=== PATIENT | male | born 1985 | race African-American/Black ===

== ENCOUNTER 2021-02-16 20:56 | Emergency (ER) | payer OTHER ==
[~2021-02-16] VITALS: Ht 154.9 cm; Wt 62.8 kg
[~2021-02-16 20:56] MED LIST: ALBUTEROL2.5 MG/3 M IH; NOHOMEMEDICATIONS; PREDNISONE 10 M10 MG PO; VENTOLIN HFA 1818 GM INH; ZPAK PO
[2021-02-16 22:01] LABS: ABSOLUTE BASOPHILS 0.1 thou/uL (0.0-0.2); ABSOLUTE EOSINOPHILS 0.5 thou/uL (0.0-0.7); ABSOLUTE LYMPHOCYTES 1.5 thou/uL (0.8-5.3); ABSOLUTE MONOCYTES 0.8 thou/uL (0.0-1.2); ABSOLUTE NEUTROPHILS 7.7 thou/uL (1.6-8.1); BASOPHILS 1.4 %; EOSINOPHILS 4.4 %; HEMATOCRIT 45.5 % (42.0-52.0); HEMOGLOBIN 15.7 gm/dL (14.0-18.0); LYMPHOCYTES 13.8 %; MCH 30.4 pg (26.0-34.0); MCHC 34.5 g/dL (28.0-37.0); MCV 87.9 fL (80.0-100.0); MONOCYTES 7.6 %; MPV 6.8 fl. (7.2-11.1); NUCLEATED RBCS 0 /100WBC; PLATELET COUNT* 242 thou/uL (150-400); POLYS 72.8 %; RBC 5.17 mil/uL (4.50-6.00); RDW-CV 13.4 % (10.5-14.5); WBC 10.5 thou/uL (4.0-11.0)
[2021-02-16 22:10] LABS: CALCIUM 8.3 mg/dL (8.5-10.1); CREATININE 1.1 mg/dL (0.6-1.3); POTASSIUM 3.9 mmol/L (3.5-5.1)
[2021-02-16 22:15] LABS: ALBUMIN 3.3 g/dL (3.4-5.0); TOTAL BILIRUBIN 0.7 mg/dL (<0.1-1.0); TOTAL PROTEIN 6.9 g/dL (6.4-8.2)
[2021-02-16 22:18] LABS: URINE BLOOD NEGATIVE (Negative); URINE CLARITY CLEAR; URINE COLOR YELLOW; URINE GLUCOSE-RANDOM NEGATIVE (Negative); URINE KETONES TRACE (Negative); URINE LEUKOCYTES-REFLEX NEGATIVE (Negative); URINE NITRITE-REFLEX NEGATIVE (Negative); URINE PROTEIN 1+ (Negative); URINE SPECIFIC GRAVITY >= 1.030 (1.005-1.030); URINE UROBILINOGEN 0.2 E.U./dl (0.2-1.0)
[2021-02-16 22:19] LABS: ACETAMINOPHEN < 2 ug/mL (10-30); ALCOHOL < 10 mg/dL (<10); SALICYLATE < 2.8 mg/dL (2.8-20.0)
[2021-02-16 22:22] LABS: URINE BILIRUBIN 1+ (Negative)
[2021-02-16 22:25] LABS: AMP/METHAMP POSITIVE (Negative); BARBITURATES Negative (Negative); BENZODIAZEPINES Negative (Negative); COCAINE Negative (Negative); ICTOTEST (BILI CONFIRMATORY) Negative (Negative); METHADONE Negative (Negative); OPIATES Negative (Negative); PCP Negative (Negative); THC POSITIVE (Negative)
[2021-02-17 04:02] LABS: CALCIUM 8.8 mg/dL (8.5-10.1); POTASSIUM 4.2 mmol/L (3.5-5.1)
--- NOTE | 2021-02-17 10:03 | EKG ---
[place] [address] ELECTROCARDIOGRAM REPORT Name: ALEXYMORGAN George Room: [facility]#: [id number] Admission: 02/16/21 Attend Phys: Discharge: Date of : 87 Date of Service: 02/16/212137 Report #: [id number] THIS REPORT FOR: //name// [facility] ED Test Date: 2021-02-16 Test Time: 21:38:49 Pat Name: MORGAN TRACEY Department: Room: Gender: Graduate Rn: RICH : 1985 Requested By: Jazzy Timmons Order Number: [id number] MD: Blake Woody Measurements Intervals [place] Rate: 112 P: 78 SD: 130 QRS: 44 QRSD: 80 T: 70 QT: 311 QTc: 425 Interpretive Statements Sinus tachycardia Right atrial enlargement ST elev, probable normal early repol pattern Baseline wander in lead(s) V1 No previous ECG available for comparison Electronically Signed On 02-17-2021 10:03:39 CDT by Blake Woody [email or web address] <ELECTRONICALLY SIGNED> By: Blake Woody MD, [facility] 02/17/21 1003 37 37 Blake Woody MD, [facility] /EPI
--- NOTE | 2021-02-18 13:45 | NUR ---
REFERRAL PACKET FAXED TO [facility] ([phone]) [facility] ([phone]) [facility] ([phone]) [facility] ([phone]) STATED NO BEDS CONTACT THEM BACK TOMORROW, [facility] [phone]) NO BEDS. AWAITING ON FOLLOW UP FROM FACILITIES SUBMITTED REFERRAL TO. CONTINUE TO FOLLOW FOR SAFE D/C PLANNING.
--- NOTE | 2021-02-18 15:12 | NUR ---
FOLLOW UPDATE, [facility] DECLINED PT. DUE TO CAPABILITIES. [facility] DECLINED PT.NO BEDS, [facility] NO BEDS FOR MALE ADULTS. WILL SEND REFERRAL PACKET TO 5 MORE FACILITIES. CONTINUE TO FOLLOW FOR SAFE D/C PLANNING.
--- NOTE | 2021-02-19 11:46 | NUR ---
REFERRAL PACKETS FAXED TO [facility] ([phone]) CALLED BACK STATED NO BEDS, TRY TOMORROW, [facility] ([phone]) STATED CURRENTLY FULL, [facility] ([phone]) NO BEDS, [facility] ([phone]) ON A HOLD FOR IN PSYCH SERVICES, [facility] ([phone]) SPOKE WITH INTAKE DR. LARA TO FAX REFERRAL AND CALL HIM BACK IN AN HOUR. WILL FOLLOW UP. CONTINUE TO FOLLOW FOR SAFE D/C PLANNING.
[2021-02-19 12:20] VITALS: BP 125/68
--- NOTE | 2021-02-19 14:22 | NUR ---
PT. D/C TO [facility] IN [facility]YCH TODAY.
== END 2021-02-19 12:25 ==
LOC: M.ERS 20:56
PROVIDERS: Emergency Medicine
DX: R45.1 Restlessness and agitation (principal); T65.92XA Toxic effect of unspecified substance, intentional self-harm, initial encounter; Z20.822 Contact with and (suspected) exposure to COVID-19; F15.10 Other stimulant abuse, uncomplicated; J45.909 Unspecified asthma, uncomplicated; Z79.899 Other long term (current) drug therapy; Y92.89 Other specified places as the place of occurrence of the external cause

== ENCOUNTER 2021-03-27 17:31 | Inpatient (IN) | payer OTHER ==
[~2021-03-27] VITALS: Ht 182.9 cm; Wt 79.4 kg
[2021-03-27 17:34] VITALS: BP 154/104
[2021-03-27 17:47] LABS: ABSOLUTE BASOPHILS 0.2 thou/uL (0.0-0.2); ABSOLUTE EOSINOPHILS 1.2 thou/uL (0.0-0.7); ABSOLUTE MONOCYTES 1.2 thou/uL (0.0-1.2); ABSOLUTE NEUTROPHILS 7.4 thou/uL (1.6-8.1); BASOPHILS 1.2 %; EOSINOPHILS 9.4 %; HEMOGLOBIN 16.9 gm/dL (14.0-18.0); LYMPHOCYTES 23.2 %; MCH 28.7 pg (26.0-34.0); MCHC 32.5 g/dL (28.0-37.0); MCV 88.3 fL (80.0-100.0); MONOCYTES 9.3 %; MPV 7.1 fl. (7.2-11.1); NUCLEATED RBCS 0 /100WBC; PLATELET COUNT* 325 thou/uL (150-400); POLYS 56.9 %; RBC 5.89 mil/uL (4.50-6.00); RDW-CV 13.7 % (10.5-14.5)
[2021-03-27 18:07] LABS: CALCIUM 8.7 mg/dL (8.5-10.1); CREATININE 1.3 mg/dL (0.6-1.3); POTASSIUM 4.3 mmol/L (3.5-5.1)
[2021-03-27 18:11] LABS: ALBUMIN 4.2 g/dL (3.4-5.0); TOTAL BILIRUBIN 0.7 mg/dL (<0.1-1.0)
[2021-03-27] MEDS ORDERED: ALBUTEROL2.5 MG/31 INH ×2 (21:25→21:27)
[2021-03-27] MEDS ORDERED: MEDROLDOSEPACK PO ×2 (21:25→21:27)
[2021-03-27 22:22] VITALS: BP 135/98
--- NOTE | 2021-03-28 09:44 | EKG ---
[place] [address] ELECTROCARDIOGRAM REPORT Name: MORGAN TRACEY Room: [address] IN [facility]#: [id number] Admission: 03/27/21 Attend Phys: Charanjit Shin, Discharge: 03/27/21 Date of : 87 Date of Service: 03/27/21 1735 Report #: [id number] THIS REPORT FOR: //name// [facility] ED Test Date: 2021-03-27 Test Time: 17:35:57 Pat Name: MORGAN TRACEY Department: Room: [place] [address] Gender: M Conference And Event Organiser: YESENIA : 1985 Requested By: Franco Gonzalez Order Number: [id number] MD: Mickey Hinds Measurements Intervals [place] Rate: 121 P: 90 MA: 126 QRS: 267 QRSD: 147 T: 88 QT: 299 QTc: 425 Interpretive Statements Sinus tachycardia LAE, consider biatrial enlargement Nonspecific IVCD with LAD Artifact in lead(s) I,II,III,aVR,aVL,aVF,V1,V2,V3,V4,V5,V6 Compared to ECG 02/16/2021 21:38:49 Intraventricular conduction delay now present ST (T wave) deviation no longer present Electronically Signed On 03-28-2021 9:44:36 CDT by Mickey Hinds [email or web address] <ELECTRONICALLY SIGNED> By: Mickey Hinds MD, [facility] 03/28/21 0944 1735 1735 Mickey Hinds MD, [facility] /EPI
== END 2021-03-27 22:15 | disposition left against medical advice (07) | DRG 189 ==
LOC: M.ERS 17:31 → M.TBA-ER 18:54
PROVIDERS: Emergency Medicine Emergency Medical Services; ADMIT Internal Medicine; ATTEND Internal Medicine
PROC: 5A09357 Assistance with Respiratory Ventilation, Less than 24 Consecutive Hours, Continuous Positive Airway Pressure (ICD-10-PCS; principal; 2021-03-27)
DX: J96.01 Acute respiratory failure with hypoxia (principal); J45.901 Unspecified asthma with (acute) exacerbation; F17.200 Nicotine dependence, unspecified, uncomplicated; F19.11 Other psychoactive substance abuse, in remission; Z20.822 Contact with and (suspected) exposure to COVID-19; Z53.21 Procedure and treatment not carried out due to patient leaving prior to being seen by health care provider

== ENCOUNTER 2021-04-21 06:33 | Inpatient (IN) | payer OTHER ==
[~2021-04-21] VITALS: Ht 180.3 cm; Wt 67.1 kg
[~2021-04-21 06:33] MED LIST changes: +ALBUTEROL2.5 MG/31 INH; +MEDROLDOSEPACK PO
[2021-04-21 06:45] VITALS: BP 189/131
[2021-04-21] MEDS ORDERED: WELLBUTRIN 75 M75 M1 PO (06:51)
[2021-04-21] MEDS ORDERED: PROAIR HFA8.5 GM INH (06:52)
[2021-04-21] MEDS ORDERED: DULERA 100 MCG/13 GM (06:52)
[2021-04-21 08:01] LABS: ABSOLUTE BASOPHILS 0.1 thou/uL (0.0-0.2); ABSOLUTE EOSINOPHILS 0.2 thou/uL (0.0-0.7); ABSOLUTE LYMPHOCYTES 1.2 thou/uL (0.8-5.3); ABSOLUTE MONOCYTES 0.6 thou/uL (0.0-1.2); ABSOLUTE NEUTROPHILS 7.4 thou/uL (1.6-8.1); BASOPHILS 0.8 %; EOSINOPHILS 1.9 %; HEMATOCRIT 51.9 % (42.0-52.0); HEMOGLOBIN 17.7 gm/dL (14.0-18.0); LYMPHOCYTES 12.9 %; MCH 29.6 pg (26.0-34.0); MCV 86.9 fL (80.0-100.0); MONOCYTES 6.7 %; MPV 7.1 fl. (7.2-11.1); NUCLEATED RBCS 1 /100WBC; PLATELET COUNT* 349 thou/uL (150-400); POLYS 77.7 %; RBC 5.97 mil/uL (4.50-6.00); RDW-CV 13.3 % (10.5-14.5); WBC 9.6 thou/uL (4.0-11.0)
[2021-04-21 08:09] LABS: CALCIUM 9.3 mg/dL (8.5-10.1); CREATININE 1.2 mg/dL (0.6-1.3); POTASSIUM 4.2 mmol/L (3.5-5.1)
[2021-04-21 08:14] LABS: MAGNESIUM 1.7 mg/dL (1.8-2.4); TOTAL BILIRUBIN 0.7 mg/dL (<0.1-1.0); TOTAL PROTEIN 7.7 g/dL (6.4-8.2)
[2021-04-21 12:42] VITALS: BP 150/80
--- NOTE | 2021-04-21 12:50 | EKG ---
[place] [address] ELECTROCARDIOGRAM REPORT Name: MORGAN TRACEY Room: [place] [address] ADM [place] [facility]#: [id number] Admission: 04/21/21 Attend Phys: Gisele Ching, Discharge: Date of : 87 Date of Service: 04/21/21 0732 Report #: [id number] THIS REPORT FOR: //name// [facility] ED Test Date: 2021-04-21 Test Time: 07:32:41 Pat Name: MORGAN TRACEY Department: Room: [facility] Gender: M Carpenter Mate: JUNE : 1985 Requested By: Franco Gonzalez Order Number: [id number] MD: Daniel Terrazas Measurements Intervals [place] Rate: 108 P: 86 [place]: 126 QRS: 96 QRSD: 74 T: 78 QT: 309 QTc: 414 Interpretive Statements Sinus tachycardia Right atrial enlargement Borderline right axis deviation Baseline wander in lead(s) I,II,III,aVR,aVL,aVF,V2,V3 Compared to ECG 03/27/2021 17:35:57 Intraventricular conduction delay no longer present Electronically Signed On 04-21-2021 12:50:33 CDT by Daniel Terrazas [email or web address] <ELECTRONICALLY SIGNED> By: Daniel Terrazas MD, [facility] 04/21/21 1250 1 Daniel Terrazas MD, [facility] /EPI
[2021-04-21] MEDS ORDERED: PREDNISONE 10 M10 M1 PO (13:11)
[2021-04-21] MEDS ORDERED: DULERA 100 MCG/13 GM INH (13:11)
[2021-04-21] MEDS ORDERED: XOPENEX0.63 MG/3 INH (13:11)
[2021-04-21] MEDS ORDERED: DOXYCYCLINE 10100 MG PO (13:11)
[2021-04-21 13:30] VITALS: BP 140/91
[2021-04-21 17:48] LABS: PCO2 40.5 mmHg (35.0-45.0); PO2 72.1 mmHg (75.0-100.0); pH 7.388 (7.340-7.450)
[2021-04-21 17:59] VITALS: BP 154/85
--- NOTE | 2021-04-21 19:00 | NUR ---
Short of air. Feels much improved following breathing treamtments. Agreeable to meeting with social work professor regarding access to medications and medical care. Up ad katherine.
[2021-04-21 20:49] VITALS: BP 118/84
[2021-04-21] MEDS ORDERED: REMERON15 M2 PO (21:22)
[2021-04-22 04:25] LABS: HEMATOCRIT 50.3 % (42.0-52.0); HEMOGLOBIN 16.7 gm/dL (14.0-18.0); MCH 28.9 pg (26.0-34.0); MCHC 33.1 g/dL (28.0-37.0); MCV 87.1 fL (80.0-100.0); MPV 7.4 fl. (7.2-11.1); RBC 5.77 mil/uL (4.50-6.00); RDW-CV 13.4 % (10.5-14.5); WBC 18.2 thou/uL (4.0-11.0)
[2021-04-22 04:41] LABS: ALBUMIN 3.8 g/dL (3.4-5.0); CALCIUM 9.2 mg/dL (8.5-10.1); CREATININE 1.1 mg/dL (0.6-1.3); MAGNESIUM 1.9 mg/dL (1.8-2.4); POTASSIUM 4.4 mmol/L (3.5-5.1); TOTAL BILIRUBIN 0.4 mg/dL (<0.1-1.0); TOTAL PROTEIN 7.6 g/dL (6.4-8.2)
[2021-04-22 07:01] LABS: AMP/METHAMP POSITIVE (Negative); BARBITURATES Negative (Negative); BENZODIAZEPINES Negative (Negative); COCAINE Negative (Negative); METHADONE Negative (Negative); OPIATES Negative (Negative); PCP Negative (Negative); THC POSITIVE (Negative)
--- NOTE | 2021-04-22 08:06 | NUR ---
PT IS ABLE TO COMMUNICATE HIS NEEDS TO STAFF EFFECTIVELY. HE HAS DENIED THE NEED FOR PAIN MEDICATION UP TO THIS TIME.
[2021-04-22 09:10] VITALS: BP 117/76
[2021-04-22 11:40] VITALS: BP 136/75
[2021-04-22 16:00] VITALS: BP 124/91
[2021-04-22] MEDS ORDERED: WELLBUTRIN 75 M75 M1 PO (16:40)
--- NOTE | 2021-04-22 17:24 | NUR ---
CM ASSESSMENT: PT A&O, INDPENDENT, ACTIVE AND WORKS OUTSIDE THE HOME. PT USES HOME [employer]. NO OTHER DME. PT INFORMS THAT HE IS UNINSURED AND WILL REQUIRE ASSISTANCE WITH PAYING FOR MEDS AT D/C. CM ASSISTED THE PT WITH COMPLETING MEDICATION ASSISTANCE FORM AND FAXED TO [facility]. PHYSICIAN SENT ORDERS FOR MEDS TO [facility] [id number]. CM WILL CHECK WITH [facility] IN THE AM TO CONFIRM THAT THE MEDS ARE READY TO PICKUP. CM WILL REMAIN AVAILABLE TO ASSIST AND FOLLOW NEEDED.
--- NOTE | 2021-04-22 17:41 | NUR ---
Pt decided to leave AMA. Discussed accessing programs to help pay for medications as well as the risks of leaving prior to doctor's recommendations. Stated that he "just really wants to go home." Also stated that he would go home and smoke some weed to help himself calm down.
== END 2021-04-22 17:00 | disposition home or self-care (01) | DRG 193 ==
LOC: M.ERS 06:33 → M.TBA-ER 08:48 → M.2W 12:55
PROVIDERS: Emergency Medicine Emergency Medical Services; ADMIT Internal Medicine; ATTEND Internal Medicine
DX: J18.9 Pneumonia, unspecified organism (principal); J96.01 Acute respiratory failure with hypoxia; J45.901 Unspecified asthma with (acute) exacerbation; J45.909 Unspecified asthma, uncomplicated; F12.90 Cannabis use, unspecified, uncomplicated; Z20.822 Contact with and (suspected) exposure to COVID-19; Z53.29 Procedure and treatment not carried out because of patient's decision for other reasons; Z79.899 Other long term (current) drug therapy